=== PATIENT | female | born 1970 | race Caucasian/White ===

== ENCOUNTER 2018-12-23 12:29 | Emergency (ER) | payer SELFPAY ==
[~2018-12-23] VITALS: Ht 157.5 cm; Wt 65.3 kg
[~2018-12-23 12:29] MED LIST: ACET500C5 PO; PRED20TA PO; TRAM50TA2 PO
[2018-12-23 12:38] VITALS: BP 112/66; PULSE 84; RESP 16; Ht 157.5 cm; Wt 65.3 kg
--- NOTE | 2018-12-23 13:10 | ERD ---
ER Documentation Chief Complaint Chief Complaint L side of: face, jaw, neck, arm pain x3wks no relief w ibuprofen. no fever HPI 48-year-old female presents with multiple complaints. She has a 3-week history of pain in her bilateral TMJ area and bilateral neck muscles. She is taking ibuprofen. She has a history of TMJ and uses a bite block. She also has nasal congestion. She has intermittent pain radiating to the fingers without weakness , deficits, additional symptoms. She denies chest pain or shortness of breath. She is taking prednisone in the past with relief of her TMJ and neck pain is requesting possibly repeat prescription. ROS All systems reviewed and are negative except as per history of present illness. Medications Home Meds Active Scripts Acetaminophen* (Tylophen*) 500 Mg Capsule, 1 CAP PO Q6H PRN for PAIN AND OR ELEVATED TEMP, #30 CAP Prov:IRMA PAULA MD 12/23/18 Tramadol HCl (Tramadol HCl) 50 Mg Tablet, 50 MG PO Q4 PRN for PAIN, #15 TAB Prov:IRMA PAULA MD 12/23/18 Prednisone* (Prednisone*) 20 Mg Tab, 40 MG PO DAILY for 4 Days, TAB Prov:IRMA PAULA MD 12/23/18 Allergies Allergies: Coded Allergies: No Known Allergy (Unverified , 12/23/18) FmHx Family History: No diabetes, No coronary disease, No other Physical Exam Vitals Vital Signs Date Temp Pulse Resp B/P (MAP) Pulse Ox O2 O2 Flow FiO2 Time Delivery Rate 12/23/18 98.3 84 16 112/66 98 12:38 (81) Physical Exam Const: No acute distress Head: Atraumatic Eyes: Normal Conjunctiva ENT: Normal External Ears, Nose and Mouth. TMs normal. Bilateral TMJ tenderness. Neck: Full range of motion. No meningismus. Generalized tenderness in the cervical paraspinous muscles without midline tenderness or deformities. Resp: Clear to auscultation bilaterally Cardio: Regular rate and rhythm, no murmurs Abd: Soft, non tender, non distended. Normal bowel sounds Skin: No petechiae or rashes Back: No midline or flank tenderness Ext: No cyanosis, or edema Neur: Awake and alert. Cranial nerves II through XII grossly intact. Normal gait. No appreciable focal neurologic deficits. Psych: Normal Mood and Affect Procedures/MDM Patient presents with multiple complaints most of which appear to be nontraumatic neck pain and TMJ. She has no signs of facial cellulitis, airway obstruction, deficits, additional concerning signs or symptoms. EKG: Rate/Rhythm: Normal Sinus Rhythm. Rate equals 69 QRS, ST, T-waves: No changes consistent w/ acute ischemia Impression: No evidence of ischemia or arrhythmia Patient presents with appears to be TMJ and nontraumatic neck pain, likely musculO skeletal. Her extremity pain suggest radicular pain as well. She has no signs of SIRS criteria, check cardiac chest pain, shortness of breath, additional concerning signs or symptoms. Will treat with short course of tramadol, Tylenol, short course of prednisone as directed with instructions to follow-up with primary doctor or recheck for new or worsening symptoms. The patient was stable with no new complaints during the ER course. Clinically, there is no current evidence to suggest meningitis, sepsis, acute abdomen, pneumonia, stroke, acute coronary syndrome, pulmonary embolism, aortic dissection or any other emergent condition appearing to require further evaluation or hospitalization. Patient counseled regarding my diagnostic impression and care plan. Prior to discharge all questions answered. Pt agrees with treatment plan and understands strict return precautions. Pt is instructed to follow up with primary care provider within 24-48 hours. Precautionary instructions provided including instructions to return to the ER if not improving or for any worsening or changing symptoms or concerns. Disclaimer: Inadvertent spelling and grammatical errors are likely due to EHR/dictation software use and do not reflect on the overall quality of patient care. Also, please note that the electronic time recorded on this note does not necessarily reflect the actual time of the patient encounter. Departure Diagnosis: Primary Impression: Neck pain Additional Impression: TMJ arthralgia Laterality: bilateral Qualified Codes: M26.623 - Arthralgia of bilateral temporomandibular joint Condition: Stable Patient Instructions: Neck Pain, No Trauma, Tmj Syndrome [facility] Usted se wiggins hecho un examen mdico de control que le indica que no est en merle condicin que requiera tratamiento urgente en el Departamento de Emergencia. Un estudio ms profundo y el tratamiento de falk condicin pueden esperar sin ningn riesgo hasta que usted sea atendida/o en el consultorio de falk mdico o merle clnica. Es responsabilidad suya arreglar merle kiki para el seguimiento del mayito. MANEJO DE CONDICIONES NO URGENTES EN EL FUTURO 1) Si usted tiene un mdico de atencin primaria: Usted debera llamar a falk mdico de atencin primaria antes de venir al departamento de emergencia. Despus de las horas de consultorio, falk doctor o falk asociado/a est disponible por telfono. El mdico o enfermero de adrianna en el servicio telefnico puede asesorarle por geoffrey medio para atender el problema, o mayito contrario se puede programar merle kiki. 2) Si usted no tiene un mdico de atencin primaria: Llame al mdico o clnica de referencia que aparece abajo alfred las horas de consultorio para hacer merle kiki para que le vean. CLINICAS: [facility] [phone] [facility] [facility] [phone] [id number] [facility] [facility] [phone] [facility] [facility] [phone] [facility] [place] [phone] [id number] [facility]. [phone] [address] Additional Instructions: Cheque otro vez con falk doctor primario en el proximo antunez or regresa para mas o nueva simptomas. IRMA PAULA MD Dec 23, 2018 13:10
== END 2018-12-23 13:07 | disposition home or self-care (01) ==
LOC: E/R 12:29
DX: M54.2 Cervicalgia (principal); M26.623 Arthralgia of bilateral temporomandibular joint
CPT/HCPCS: 93005